=== PATIENT | male | born 1935 | race American Indian/Alaskan Native ===

== ENCOUNTER 2022-02-03 13:16 | Inpatient (IN) | payer MEDICARE ==
--- NOTE | 2022-02-03 16:22 | XRay Report ---
LEFT FEMUR 3 VIEWS INDICATION / CLINICAL INFORMATION: Left thigh pain. COMPARISON: None available. FINDINGS: BONES and JOINT(S): There is an acute minimally displaced left femoral neck fracture with an associat ed varus deformity. No dislocation. There is mild posterior arthritis of the left hip. No acute fract ure is noted elsewhere along the left femur. SOFT TISSUES: No acute findings. There is mild atherosclerosis along the knee/thigh. ADDITIONAL FINDINGS: None. IMPRESSION: 1. Acute left hip fracture as above. Signer Name: Nelson Linder MD Signed: 02/03/2022 4:17 PM Workstation Name: [facility]
[2022-02-03] MEDS ORDERED: ONDANSETRON 4 MG/2 ML INJ IV ONE (16:28)
[2022-02-03] MEDS ORDERED: MORPHINE 4 MG/1 ML INJ IV ONE (16:28)
--- NOTE | 2022-02-03 16:32 | XRay Report ---
Left hip-2 views INDICATION: thigh pain. COMPARISON: None available. IMPRESSION: Transverse bases cervical femoral neck fracture with mild impaction. Relatively anatomi c alignment is maintained. 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 No other fractur e identified. Signer Name: Twin Tomas MD Signed: 02/03/2022 4:28 PM Workstation Name: [id number]
--- NOTE | 2022-02-03 16:33 | Emergency Department Report ---
ED Extremity Problem HPI - General Chief complaint: Extremity Injury, Lower Stated complaint: LEG PAIN Time Seen by Provider: 02/03/22 16:05 Source: patient, EMS Mode of arrival: Stretcher Limitations: No Limitations - History of Present Illness Initial comments: 86 yo M who present with left thigh pain after a ladder felt on him while doing painting in his carrage. He says he was able to get up but the pain is unbearable. 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 No other modifying or associated factors reported. - Related Data Allergies Allergy/AdvReac Type Severity Reaction Status Date / Time No Known Allergies Allergy Verified 02/03/22 13:48 ED Review of Systems ROS: Stated complaint: LEG PAIN Other details as noted in HPI Comment: All other systems reviewed and negative Musculoskeletal: arthralgia, other (left thigh pain ) ED Physical Exam - General Limitations: No Limitations General appearance: alert, in distress (due to pain ) - Head Head exam: Present: normal inspection - Eye Eye exam: Present: normal appearance Pupils: Present: normal accommodation - ENT ENT exam: Present: normal exam, normal orophraynx, mucous membranes moist - Neck Neck exam: Present: normal inspection - Respiratory Respiratory exam: Present: normal lung sounds bilaterally. Absent: respiratory distress, accessory muscle use - Cardiovascular Cardiovascular Exam: Present: regular rate, normal rhythm, normal heart sounds - GI/Abdominal GI/Abdominal exam: Present: soft, normal bowel sounds. Absent: distended, tenderness - Extremities Exam Extremities exam: Present: tenderness (left mid thigh tenderness to palpation), normal capillary refill - Back Exam Back exam: Present: normal inspection - Neurological Exam Neurological exam: Present: alert, oriented X3 - Psychiatric Psychiatric exam: Present: normal affect, normal mood - Skin Skin exam: Present: warm, normal color ED Course Vital Signs 02/03/22 13:46 Pulse Rate 62 Blood Pressure 157/75 [Left] O2 Sat by Pulse 100 Oximetry - Reevaluation(s) Reevaluation #1: 02/03/22 16:34 here with with left thigh pain after a trauma-- will go ahead and order xray to rule out fracture or dislocation. Given morphine and zofran for symptomatic relieve. Reevaluation #2: 02/03/22 16:50 Hip and thigh xray noted with femoral neck fracture with minimal displacement and impaction-- I called and spoke with Dr Tavarez's answering service to have him call me back. In the meantime will go ahead and order routine pre-op labs including CBC, CMP and EKG. Reevaluation #3: 02/03/22 17:44 I called and Consult with Dr. Alonso who accepted patient for further evaluation and treatment. Pt will be admitted and Dr Hair is planning to take the patient to OR tomorrow possibly. 02/03/22 17:44 ED Medical Decision Making - Lab Data Result diagrams: 02/03/22 Unknown 02/03/22 Unknown Critical care attestation.: If time is entered above; I have spent that time in minutes in the direct care of this critically ill patient, excluding procedure time. ED Disposition Clinical Impression: Left thigh pain Fx humeral neck Qualifiers: Encounter type: initial encounter Fracture type: closed Laterality: left Qualified Code(s): S42.212A - Unspecified displaced fracture of surgical neck of left humerus, initial encounter for closed fracture Disposition: 09 ADMITTED INPATIENT Is pt being admited?: Yes Does the pt Need Aspirin: No Condition: Stable Referrals: PRIMARY CARE, [Primary Care Provider] - 3-5 Days Time of Disposition: 17:45
[2022-02-03 17:30] LABS: Basophils % (Auto) 0.1 % (0.0-1.8); Eosinophils # (Auto) 0.1 K/mm3 (0.0-0.4); Eosinophils % (Auto) 0.9 % (0.0-4.3); Hematocrit 39.3 % (35.5-45.6); Hemoglobin 13.5 gm/dl (11.8-15.2); Lymphocytes # (Auto) 0.5 K/mm3 (1.2-5.4); Lymphocytes % (Auto) 4.9 % (13.4-35.0); Mean Corpuscular HGB Conc 34 % (32-34); Mean Corpuscular Volume 100 fl (84-94); Monocytes # (Auto) 0.6 K/mm3 (0.0-0.8); Monocytes % (Auto) 6.2 % (0.0-7.3); Platelet Count 143 K/mm3 (140-440); Red Blood Count 3.94 M/mm3 (3.65-5.03); Red Cell Distribution Width 13.4 % (13.2-15.2)
[2022-02-03 17:44] LABS: INR 1.03 (0.87-1.13); Partial Thromboplastin Time 23.8 Sec. (24.2-36.6)
[2022-02-03 17:50] LABS: Alanine Aminotransferase 17 units/L (7-56); BUN/Creatinine Ratio 13; Blood Urea Nitrogen 12 mg/dL (9-20); Calcium 9.3 mg/dL (8.4-10.2); Hemolysis Index 6
[2022-02-03] MEDS ORDERED: ACETAMINOPHEN 325 MG TAB PO PRN (18:06)
[2022-02-03] MEDS ORDERED: ALBUTEROL 2.5 MG/3 ML NEBU IH PRN (18:06)
--- NOTE | 2022-02-03 18:06 | History and Physical Report ---
History of Present Illness Chief complaint: My leg hurts History of present illness: 86 YO Male with Vascular Dementia, Cerebral Atherosclerosis presents ED for evaluation. Patient reports "my leg hurts ". Patient states that he was in his usual state of health and was painting his garage today. Patient states that a ladder fell on him while painting which resulted in his fall to the ground. Patient states that he experienced immediate pain in his left leg and was unable to stand and bear weight on his left lower extremity. The patient was seen and evaluated in the emergency department. All lab and imaging studies reviewed. Patient underwent hip x-ray and was found to have left femoral neck fracture. O rthopedic surgery service consulted in ED. Patient is pending surgical intervention at this time. Patient denies fever, chills, chest pain, palpitation, productive cough, skin rash, syncope, recent contact, known exposure to COVID-19. no prior admission for review. No medication listed at time of admission for reconciliation. Advanced care planning conducted in ED. Past History Past Medical History: other (See HPI) Past Surgical History: No surgical history, Other ( reviewed) Social history: single. denies: smoking, alcohol abuse, prescription drug abuse Family history: no significant family history, other (Reviewed) Medications and Allergies Allergies Allergy/AdvReac Type Severity Reaction Status Date / Time No Known Allergies Allergy Verified 02/03/22 19:02 Review of Systems Constitutional: no weight loss, no weight gain, no fever, no chills Ears, nose, mouth and throat: no ear pain, no ear discharge, no tinnitis, no nasal congestion, no nasal discharge Cardiovascular: no chest pain, no palpitations, no edema, no syncope, no lightheadedness, no shortness of breath Respiratory: no cough, no cough with sputum, no hemoptysis Gastrointestinal: no abdominal pain, no hematemesis Genitourinary Male: no hematuria, no discharge, no urinary frequency, no nocturia, no incontinence, no genital pain Rectal: no pain, no incontinence, no bleeding Musculoskeletal: other (Left hip pain), no neck stiffness, no neck pain, no shooting arm pain, no arm numbness/tingling, no low back pain, no shooting leg pain Integumentary: no rash, no pruritis, no sores, no wounds Neurological: no head injury, no paralysis, no parathesias, no tingling, no tremors, no ataxia Psychiatric: no anxiety, no insomnia, no change in appetite, no suicidal ideation, no disorientation Endocrine: no cold intolerance, no polyphagia, no polydipsia, no polyuria, no nocturia, no flushing Hematologic/Lymphatic: no easy bruising, no easy bleeding Allergic/Immunologic: no urticaria, no allergic rhinitis, no wheezing Exam - Constitutional Vitals: Temp Pulse Resp BP Pulse Ox 62 157/75 100 02/03/22 13:46 02/03/22 13:46 02/03/22 13:46 General appearance: Present: mild distress - EENT Eyes: Present: PERRL ENT: hearing intact, clear oral mucosa - Neck Neck: Present: supple, normal ROM - Respiratory Respiratory effort: normal Respiratory: bilateral: CTA - Cardiovascular Heart Sounds: Present: S1 & S2. Absent: rub, click - Extremities Extremities: pulses symmetrical, No edema Extremity abnormal: erythema, tenderness, other (Left hip pain and tenderness) Peripheral Pulses: within normal limits - Abdominal General gastrointestinal: Present: soft, non-tender, non-distended, normal bowel sounds Male genitourinary: Present: normal - Integumentary Integumentary: Present: clear, warm, dry - Musculoskeletal Musculoskeletal: gait normal, strength equal bilaterally - Psychiatric Psychiatric: appropriate mood/affect, intact judgment & insight - Neurologic Neurologic: CNII-XII intact, moves all extremities Results - Labs CBC & Chem 7: 02/03/22 Unknown 02/03/22 Unknown Labs: Abnormal lab results 02/03/22 02/03/22 02/03/22 Range/Units Unknown Unknown Unknown MCV 100 H (84-94) fl MCH 34 H (28-32) pg Lymph % (Auto) 4.9 L (13.4-35.0) % Lymph # (Auto) 0.5 L (1.2-5.4) K/mm3 Seg Neutrophils % 87.9 H (40.0-70.0) % Seg Neutrophils # 8.3 H (1.8-7.7) K/mm3 APTT 23.8 L (24.2-36.6) Sec. Glucose 132 H (75-100) mg/dL Assessment and Plan - Patient Problems (1) Fx humeral neck Current Visit: Yes Status: Acute Qualifiers: Encounter type: initial encounter Fracture type: closed Laterality: left Qualified Code(s): S42.212A - Unspecified displaced fracture of surgical neck of left humerus, initial encounter for closed fracture Plan to address problem: X-ray pelvis, x-ray hip, orthopedic surgery service consulted, n.p.o., pain control, patient is pending surgical intervention. (2) Vascular dementia Current Visit: Yes Status: Acute Qualifiers: Dementia behavioral disturbance: without behavioral disturbance Qualified Code(s): F01.50 - Vascular dementia without behavioral disturbance Plan to address problem: Verbal prompting, verbal redirection, benzodiazepine therapy as clinically indicated. (3) Cerebral atherosclerosis Current Visit: Yes Status: Acute Plan to address problem: Risk factor reduction, antiplatelet therapy as clinically indicated. (4) DVT prophylaxis Current Visit: Yes Status: Acute Plan to address problem: SCD to bilateral lower extremities while in bed (5) Advance care planning Current Visit: Yes Status: Acute Plan to address problem: Disease education conducted, care plan discussed, diagnoses discussed, prognosis discussed, patient is full code. Patient knowledges understanding and agreement with care plan, +30 minutes.
[2022-02-03] MEDS: ONDANSETRON 4 MG/2 ML INJ IV PRN (20:30)
[2022-02-03] MEDS: HYDROmorphone 1 MG/1 ML INJ IV PRN (20:30)
[2022-02-04] MEDS: HYDROmorphone 1 MG/1 ML INJ IV PRN ×6 (02:51→23:06)
[2022-02-04 06:20] LABS: Basophils % (Auto) 0.2 % (0.0-1.8); Eosinophils # (Auto) 0.2 K/mm3 (0.0-0.4); Hematocrit 38.7 % (35.5-45.6); Hemoglobin 13.2 gm/dl (11.8-15.2); Lymphocytes # (Auto) 0.8 K/mm3 (1.2-5.4); Lymphocytes % (Auto) 10.5 % (13.4-35.0); Mean Corpuscular HGB Conc 34 % (32-34); Mean Corpuscular Volume 100 fl (84-94); Monocytes # (Auto) 0.7 K/mm3 (0.0-0.8); Platelet Count 136 K/mm3 (140-440); Red Blood Count 3.89 M/mm3 (3.65-5.03); Red Cell Distribution Width 13.2 % (13.2-15.2)
[2022-02-04 07:12] LABS: BUN/Creatinine Ratio 14; Blood Urea Nitrogen 14 mg/dL (9-20); Calcium 9.5 mg/dL (8.4-10.2); Hemolysis Index 6
--- NOTE | 2022-02-04 09:47 | Consultation ---
History of Present Illness - HPI Consult date: 02/04/22 History of present illness: ORTHOPAEDIC CONSULT Assessment: 1. Femoral neck fracture, basicervical, LEFT hip RECOMMENDATIONS : 1. Bipolar hip replacement, left hip ; 2. Case management for SNF placement for post op hip fracture recovery; 3. DVT prophylaxis consisting of the following: SCDs now and Eliquis or other DOAC drug for the next 5 weeks. Discussion: This is a 86-year-old gentleman who had the misfortune of being kno cked to the floor in his garage from a falling ladder yesterday. He had immediate pain and swelling and was unable to bear weight on the left leg; was therefore brought to the emergency room at [facility] where x-rays revealed a femoral neck fracture left hip. The [facility] was consulted. This is a healthy-appearing elderly male who is awake and alert and in no acute distress. He answers all questions well. He appears to be reasonably healthy and takes no cardiac medications or other drugs for chronic illnesses. Past History Past Medical History: other (See HPI) Past Surgical History: No surgical history, Other ( reviewed) Social history: single. denies: smoking, alcohol abuse, prescription drug abuse Family history: no significant family history, other (Reviewed) Medications and Allergies Allergies Allergy/AdvReac Type Severity Reaction Status Date / Time No Known Allergies Allergy Verified 02/03/22 19:02 Home Medications Medication Instructions Recorded Confirmed Last Taken Type No Known Home Medications [No 02/04/22 02/04/22 Unknown History Reported Home Medications] Active Meds: Active Medications Acetaminophen (Acetaminophen 325 Mg Tab) 650 mg PO Q4H PRN PRN Reason: Pain MILD(1-3)/Fever >100.5/SCOTT Albuterol (Albuterol 2.5 Mg/3 Ml Nebu) 2.5 mg IH Q4HRT PRN PRN Reason: Shortness Of Breath Hydromorphone HCl (Hydromorphone 1 Mg/1 Ml Inj) 0.5 mg IV Q3H PRN PRN Reason: Pain , Severe (7-10) Last Admin: 02/04/22 06:26 Dose: 0.5 mg Ondansetron HCl (Ondansetron 4 Mg/2 Ml Inj) 4 mg IV Q8H PRN PRN Reason: Nausea And Vomiting Last Admin: 02/03/22 20:30 Dose: 4 mg Oxycodone/Acetaminophen (Oxycodone /Acetaminophen 5-325mg Tab) 1 tab PO Q6H PRN PRN Reason: Pain, Moderate (4-6) Sodium Chloride (Sodium Chloride 0.9% 10 Ml Flush Syringe) 10 ml IV BID DIDIER Last Admin: 02/03/22 22:46 Dose: 10 ml Sodium Chloride (Sodium Chloride 0.9% 10 Ml Flush Syringe) 10 ml IV PRN PRN PRN Reason: LINE FLUSH
--- NOTE | 2022-02-04 12:15 | Anesthesia Day of Surgery ---
Anesthesia Day of Surgery - Day of Surgery Patient Examined: Yes Patient H&P Reviewed: Yes Patient is NPO: Yes
--- NOTE | 2022-02-04 12:18 | Anesthesia Consultation ---
Anesthesia Consult and Med Hx Date of service: 02/04/22 - Airway Anesthetic Teeth Evaluation: Partials (Upper), Edentulous (Lower) ROM Head & Neck: Adequate Mental/Hyoid Distance: Adequate Mallampati Class: Class II Intubation Access Assessment: Good - Pre-Operative Health Status ASA Pre-Surgery Classification: ASA2 Proposed Anesthetic Plan: General - Pulmonary Hx Smoking: No Hx Sleep Apnea: No - Central Nervous System Hx Neuromuscular Disorder: Yes (Tremors) - Gastrointestinal Hx Gastroesophageal Reflux Disease: No - Other Systems Hx Obesity: No
[2022-02-04] MEDS: LATANOPROST 0.005% OPHTH SOLN 2.5 ML OU SCH (19:43)
--- NOTE | 2022-02-04 20:31 | Progress Note ---
Assessment and Plan - Patient Problems (1) Fx humeral neck Current Visit: Yes Status: Acute Qualifiers: Encounter type: initial encounter Fracture type: closed Laterality: left Qualified Code(s): S42.212A - Unspecified displaced fracture of surgical neck of left humerus, initial encounter for closed fracture Plan to address problem: X-ray pelvis, x-ray hip, orthopedic surgery service consulted, n.p.o., pain control, patient is pending surgical intervention. (2) Vascular dementia Current Visit: Yes Status: Acute Qualifiers: Dementia behavioral disturbance: without behavioral disturbance Qualified Code(s): F01.50 - Vascular dementia without behavioral disturbance Plan to address problem: Verbal prompting, verbal redirection, benzodiazepine therapy as clinically indicated. (3) Cerebral atherosclerosis Current Visit: Yes Status: Acute Plan to address problem: Risk factor reduction, antiplatelet therapy as clinically indicated. (4) DVT prophylaxis Current Visit: Yes Status: Acute Plan to address problem: SCD to bilateral lower extremities while in bed (5) Advance care planning Current Visit: Yes Status: Acute Plan to address problem: Disease education conducted, care plan discussed, diagnoses discussed, prognosis discussed, patient is full code. Patient knowledges understanding and agreement with care plan, +30 minutes. History Interval history: 86 YO Male HD #2 with Left Hip Fracture. Pt resting comfortably in bed. Pt denies pain. No reported nursing events. Pt is pending surgical intervention. Hospitalist Physical - Constitutional Vitals: Temp Pulse Resp BP Pulse Ox 98.4 F 63 18 126/55 92 02/04/22 16:13 02/04/22 16:13 02/04/22 16:13 02/04/22 16:13 02/04/22 16:13 General appearance: Present: mild distress - EENT Eyes: Present: PERRL ENT: hearing intact - Neck Neck: Present: supple - Respiratory Respiratory effort: normal Respiratory: bilateral: CTA - Cardiovascular Rhythm: regular Heart Sounds: Present: S1 & S2 - Extremities Extremities: no ischemia Peripheral Pulses: within normal limits - Abdominal General gastrointestinal: soft, non-tender, non-distended - Integumentary Integumentary: Present: clear, dry - Psychiatric Psychiatric: cooperative - Neurologic Neurologic: CNII-XII intact Results - Labs CBC & Chem 7: 02/04/22 05:41 02/04/22 05:41 Labs: Laboratory Last Values WBC 7.7 K/mm3 (4.5-11.0) 02/04/22 05:41 RBC 3.89 M/mm3 (3.65-5.03) 02/04/22 05:41 Hgb 13.2 gm/dl (11.8-15.2) 02/04/22 05:41 Hct 38.7 % (35.5-45.6) 02/04/22 05:41 MCV 100 fl (84-94) H 02/04/22 05:41 MCH 34 pg (28-32) H 02/04/22 05:41 MCHC 34 % (32-34) 02/04/22 05:41 RDW 13.2 % (13.2-15.2) 02/04/22 05:41 Plt Count 136 K/mm3 (140-440) L 02/04/22 05:41 Lymph % (Auto) 10.5 % (13.4-35.0) L 02/04/22 05:41 Dickens % (Auto) 9.0 % (0.0-7.3) H 02/04/22 05:41 Eos % (Auto) 3.0 % (0.0-4.3) 02/04/22 05:41 Baso % (Auto) 0.2 % (0.0-1.8) 02/04/22 05:41 Lymph # (Auto) 0.8 K/mm3 (1.2-5.4) L 02/04/22 05:41 Dickens # (Auto) 0.7 K/mm3 (0.0-0.8) 02/04/22 05:41 Eos # (Auto) 0.2 K/mm3 (0.0-0.4) 02/04/22 05:41 Baso # (Auto) 0.0 K/mm3 (0.0-0.1) 02/04/22 05:41 Seg Neutrophils % 77.3 % (40.0-70.0) H 02/04/22 05:41 Seg Neutrophils # 6.0 K/mm3 (1.8-7.7) 02/04/22 05:41 PT 14.6 Sec. (12.2-14.9) 02/03/22 Unknown INR 1.03 (0.87-1.13) 02/03/22 Unknown APTT 23.8 Sec. (24.2-36.6) L 02/03/22 Unknown Sodium 143 mmol/L (137-145) 02/04/22 05:41 Potassium 4.1 mmol/L (3.6-5.0) 02/04/22 05:41 Chloride 106.8 mmol/L (98-107) 02/04/22 05:41 Carbon Dioxide 24 mmol/L (22-30) 02/04/22 05:41 Anion Gap 16 mmol/L 02/04/22 05:41 BUN 14 mg/dL (9-20) 02/04/22 05:41 Creatinine 1.0 mg/dL (0.8-1.3) 02/04/22 05:41 Estimated GFR > 60 ml/min 02/04/22 05:41 BUN/Creatinine Ratio 14 % 02/04/22 05:41 Glucose 116 mg/dL (75-100) H 02/04/22 05:41 Calcium 9.5 mg/dL (8.4-10.2) 02/04/22 05:41 Total Bilirubin 0.60 mg/dL (0.1-1.2) 02/03/22 Unknown AST 24 units/L (5-40) 02/03/22 Unknown ALT 17 units/L (7-56) 02/03/22 Unknown Alkaline Phosphatase 79 units/L (35-129) 02/03/22 Unknown Total Protein 7.0 g/dL (6.3-8.2) 02/03/22 Unknown Albumin 4.0 g/dL (3.9-5) 02/03/22 Unknown Albumin/Globulin Ratio 1.3 % 02/03/22 Unknown Active Medications - Current Medications Current Medications: Generic Name Dose Route Start Last Admin Trade Name Freq PRN Reason Stop Dose Admin Acetaminophen 650 mg 02/03/22 18:06 Acetaminophen 325 Mg Tab PO Q4H PRN Pain MILD(1-3)/Fever >100.5/SCOTT Albuterol 2.5 mg 02/03/22 18:06 Albuterol 2.5 Mg/3 Ml Nebu IH Q4HRT PRN Shortness Of Breath Aspirin 81 mg 02/06/22 10:00 Aspirin Ec 81 Mg Tab PO Rai DIDIER Hydromorphone HCl 0.5 mg 02/03/22 18:06 02/04/22 15:00 Hydromorphone 1 Mg/1 Ml Inj IV 0.5 mg Q3H PRN Administration Pain , Severe (7-10) Latanoprost 1 drops 02/04/22 18:00 Latanoprost 0.005% Ophth Soln 2.5 Ml OU QPM [facility] Multivitamins 1 each 02/05/22 10:00 Multivitamins ,Therapeutic Tab PO DAILY [facility] Ondansetron HCl 4 mg 02/03/22 18:06 02/03/22 20:30 Ondansetron 4 Mg/2 Ml Inj IV 4 mg Q8H PRN Administration Nausea And Vomiting Oxycodone/Acetaminophen 1 tab 02/03/22 18:06 Oxycodone /Acetaminophen 5-325mg Tab PO Q6H PRN Pain, Moderate (4-6) Sodium Chloride 10 ml 02/03/22 22:00 02/04/22 11:28 Sodium Chloride 0.9% 10 Ml Flush Syringe IV 10 ml BID DIDIER Administration Sodium Chloride 10 ml 02/03/22 18:06 Sodium Chloride 0.9% 10 Ml Flush Syringe IV PRN PRN LINE FLUSH
[2022-02-04] MEDS: oxyCODONE /ACETAMINOPHEN 5-325MG TAB PO PRN (22:56)
[2022-02-04] MEDS: ONDANSETRON 4 MG/2 ML INJ IV PRN (23:08)
[2022-02-05] MEDS: HYDROmorphone 1 MG/1 ML INJ IV PRN ×4 (05:28→21:50)
[2022-02-05] MEDS ORDERED: LIDOCAINE MPF (2%) 20 MG/1 ML VIAL 5 ML ONE (09:03)
[2022-02-05] MEDS ORDERED: fentaNYL 100 MCG/2 ML INJ ONE (09:03)
[2022-02-05] MEDS ORDERED: ONDANSETRON 4 MG/2 ML INJ ONE (09:03)
[2022-02-05] MEDS ORDERED: propofoL 200 MG/20 ML VIAL IV ONE (09:05)
[2022-02-05] MEDS: MULTIVITAMINS ,THERAPEUTIC TAB PO SCH (09:57)
[2022-02-05] MEDS ORDERED: NON-FORMULARY EACH (Multivitamin [Multivitamin] 1 EACH Tablet) PO SCH (10:00)
[2022-02-05] MEDS ORDERED: FLUTICASONE PROPIONATE NASAL SPRAY 16 GM NS PRN (11:57)
--- NOTE | 2022-02-05 12:38 | Anesthesia Day of Surgery ---
Anesthesia Day of Surgery - Day of Surgery Patient Examined: Yes Patient H&P Reviewed: Yes Patient is NPO: Yes Beta Blockers: No Cardiac Clearance: No Pulmonary Clearance: No
[2022-02-05] MEDS ORDERED: ceFAZolin 1 GM VIAL ONE ×2 (13:29)
[2022-02-05] MEDS ORDERED: HYDROmorphone 1 MG/1 ML INJ ONE (13:43)
[2022-02-05] MEDS ORDERED: NEOMY 40 MG/POLYMYXIN B 200,000 UNITS/ML (GU) AMPULE IR ONE ×2 (13:51→14:07)
[2022-02-05] MEDS ORDERED: SODIUM CHLORIDE 0.9% IRR 1,500 ML BOTTLE IR ONE (14:08)
[2022-02-05] MEDS ORDERED: ROCURONIUM 50 MG/5 ML INJ IV ONE (14:32)
[2022-02-05] MEDS ORDERED: NEOSTIGMINE 10MG/10 ML INJ MDV ONE (14:34)
[2022-02-05] MEDS ORDERED: GLYCOPYRROLATE 0.4 MG/2 ML INJ ONE (14:34)
--- NOTE | 2022-02-05 15:19 | Operative Report ---
Operative Report Operative Report: OP NOTE Preop diagnosis : Femoral neck fracture, left hip (basicervical ) Postop diagnosis: Same Procedure: Bipolar hip replacement, LEFT hip Surgeon: Carter Hair MD stylist assistant: Dr. Landa Anesthesia: General withj ETT Details of OPERATIVE TECHNIQUE : After being appropriately prepared and cleared for surgery the patient was brought to the operating room and the correct site was identified. General anesthesia was then administered. The patient was then placed in the decubitus position with the left hip up and all pressure points were well-padded. An axillary roll was placed under the appropriate side. The hip was then prepped and draped in the usual sterile fashion with Betadine and ChloraPrep solution as per total hip protocol. Space suits were worn by the surgical team. Antibiotic was administered IV prior to the start of the case in the form of 2 g Ancef. The hip was opened through a straight anterior lateral approach. Dissection was carried down through the fibrofatty layer; bleeders were clamped and cauterized with the Bovie. The tensor fascia was split the length of the incision and the Charnley retractor was carefully placed. The leg was then externally rotated and the gluteus medius and minimus were removed from the trochanter leaving a good cuff of tissue for repair. A capsulectomy was performed revealing fracture hematoma and fracture debris. The femoral head was then removed and sized on the back table. A neck cut was then made with an oscillating saw the leg was placed into the sterile bag. Attention was then directed toward the proximal femur. A box osteotome was utilized to create a lateral starting position. The distal femur was first reamed a small hand-held reamers. And then the proximal femur was prepared with broaches sequentially up to a size #8. A trial reduction was then carried out with the #[address]. The patient required a +0 neck length and the bipolar 53 mm outside diameter head was then assembled and the hip was reduced. Excellent stability was noted with the trial reduction. The patient was stable in full extension and external rotation as well as 90 degrees of hip flexion and internal rotation. Leg lengths were normalized. Shuck test was negative. Proximal femur was then irrigated copiously with antibiotic solution. The actual size #8 press-fit stem by [place] was then impacted into place. Once again excellent rotational stability was achieved. +0 neck length with bipolar head ( 53mm outside diameter/26mm inside diameter) was attached and the hip was reduced once again. Excellent stability was confirmed in all planes. The wound was then irrigated thoroughly with antibiotic solution. The abductors were repaired with #1 and 0 Vicryl sutures. The repair was oversewn with 0 Vicryl. The tensor fascia alfred was reapproximated with a running locking suture of 0 Vicryl suture. The subcutaneous layer was closed with both 0 and 2-0 Vicryl. The skin was reapproximated with jasen. Xeroform dressing and an occlusive compressive dressing were applied. Patient was then awakened and taken to recovery room in excellent condition. Estimated blood loss: 450 cc Replacement: See anesthesia record/less than 1000 cc crystalloid Drains : None Complications: None
--- NOTE | 2022-02-05 15:51 | Post Anesthesia Evaluation ---
- Post Anesthesia Evaluation Patient Participated: Yes Airway Patent: Yes Stable Respiratory Function: Yes Nausea/Vomiting: No Temp > 96.8F: Yes Pain Manageable: Yes Adequeate Hydration: Yes Anesthesia Complications: No Block Receding Appropriately: Yes Patient on Ventilator: Yes
[2022-02-05] MEDS: LATANOPROST 0.005% OPHTH SOLN 2.5 ML OU SCH (20:40)
--- NOTE | 2022-02-05 21:11 | Progress Note ---
Assessment and Plan - Patient Problems (1) Fx humeral neck Current Visit: Yes Status: Acute Qualifiers: Encounter type: initial encounter Fracture type: closed Laterality: left Qualified Code(s): S42.212A - Unspecified displaced fracture of surgical neck of left humerus, initial encounter for closed fracture Plan to address problem: orthopedic surgery service consulted, pain control, patient is s/p surgical intervention. (2) Vascular dementia Current Visit: Yes Status: Acute Qualifiers: Dementia behavioral disturbance: without behavioral disturbance Qualified Code(s): F01.50 - Vascular dementia without behavioral disturbance Plan to address problem: Verbal prompting, verbal redirection, benzodiazepine therapy as clinically indicated. (3) Cerebral atherosclerosis Current Visit: Yes Status: Acute Plan to address problem: Risk factor reduction, antiplatelet therapy as clinically indicated. (4) DVT prophylaxis Current Visit: Yes Status: Acute Plan to address problem: SCD to bilateral lower extremities while in bed (5) Advance care planning Current Visit: Yes Status: Acute Plan to address problem: Disease education conducted, care plan discussed, diagnoses discussed, prognosis discussed, patient is full code. Patient knowledges understanding and agreement with care plan, +30 minutes. History Interval history: 86 YO Male HD #3 with Left Hip Fracture. Pt resting comfortably in bed. Pt denies pain. No reported nursing events. Pt is pending surgical intervention. Hospitalist Physical - Constitutional Vitals: Temp Pulse Resp BP Pulse Ox 99.6 F 80 20 148/68 97 02/05/22 16:00 02/05/22 16:00 02/05/22 18:54 02/05/22 16:00 02/05/22 16:00 General appearance: Present: mild distress - EENT Eyes: Present: PERRL, EOM intact ENT: hearing intact - Neck Neck: Present: supple - Respiratory Respiratory effort: normal Respiratory: bilateral: CTA - Cardiovascular Rhythm: regular Heart Sounds: Present: S1 & S2 - Extremities Extremities: no ischemia Peripheral Pulses: within normal limits - Abdominal General gastrointestinal: soft, non-tender, non-distended - Integumentary Integumentary: Present: clear, dry - Psychiatric Psychiatric: appropriate mood/affect, cooperative - Neurologic Neurologic: CNII-XII intact Results - Labs CBC & Chem 7: 02/04/22 05:41 02/04/22 05:41 Labs: Laboratory Last Values WBC 7.7 K/mm3 (4.5-11.0) 02/04/22 05:41 RBC 3.89 M/mm3 (3.65-5.03) 02/04/22 05:41 Hgb 13.2 gm/dl (11.8-15.2) 02/04/22 05:41 Hct 38.7 % (35.5-45.6) 02/04/22 05:41 MCV 100 fl (84-94) H 02/04/22 05:41 MCH 34 pg (28-32) H 02/04/22 05:41 MCHC 34 % (32-34) 02/04/22 05:41 RDW 13.2 % (13.2-15.2) 02/04/22 05:41 Plt Count 136 K/mm3 (140-440) L 02/04/22 05:41 Lymph % (Auto) 10.5 % (13.4-35.0) L 02/04/22 05:41 [place] % (Auto) 9.0 % (0.0-7.3) H 02/04/22 05:41 Eos % (Auto) 3.0 % (0.0-4.3) 02/04/22 05:41 Baso % (Auto) 0.2 % (0.0-1.8) 02/04/22 05:41 Lymph # (Auto) 0.8 K/mm3 (1.2-5.4) L 02/04/22 05:41 [place] # (Auto) 0.7 K/mm3 (0.0-0.8) 02/04/22 05:41 Eos # (Auto) 0.2 K/mm3 (0.0-0.4) 02/04/22 05:41 Baso # (Auto) 0.0 K/mm3 (0.0-0.1) 02/04/22 05:41 Seg Neutrophils % 77.3 % (40.0-70.0) H 02/04/22 05:41 Seg Neutrophils # 6.0 K/mm3 (1.8-7.7) 02/04/22 05:41 PT 14.6 Sec. (12.2-14.9) 02/03/22 Unknown INR 1.03 (0.87-1.13) 02/03/22 Unknown APTT 23.8 Sec. (24.2-36.6) L 02/03/22 Unknown Sodium 143 mmol/L (137-145) 02/04/22 05:41 Potassium 4.1 mmol/L (3.6-5.0) 02/04/22 05:41 Chloride 106.8 mmol/L (98-107) 02/04/22 05:41 Carbon Dioxide 24 mmol/L (22-30) 02/04/22 05:41 Anion Gap 16 mmol/L 02/04/22 05:41 BUN 14 mg/dL (9-20) 02/04/22 05:41 Creatinine 1.0 mg/dL (0.8-1.3) 02/04/22 05:41 Estimated GFR > 60 ml/min 02/04/22 05:41 BUN/Creatinine Ratio 14 % 02/04/22 05:41 Glucose 116 mg/dL (75-100) H 02/04/22 05:41 Calcium 9.5 mg/dL (8.4-10.2) 02/04/22 05:41 Total Bilirubin 0.60 mg/dL (0.1-1.2) 02/03/22 Unknown AST 24 units/L (5-40) 02/03/22 Unknown ALT 17 units/L (7-56) 02/03/22 Unknown Alkaline Phosphatase 79 units/L (35-129) 02/03/22 Unknown Total Protein 7.0 g/dL (6.3-8.2) 02/03/22 Unknown Albumin 4.0 g/dL (3.9-5) 02/03/22 Unknown Albumin/Globulin Ratio 1.3 % 02/03/22 Unknown Active Medications - Current Medications Current Medications: Generic Name Dose Route Start Last Admin Trade Name Freq PRN Reason Stop Dose Admin Acetaminophen 650 mg 02/03/22 18:06 Acetaminophen 325 Mg Tab PO Q4H PRN Pain MILD(1-3)/Fever >100.5/SCOTT Albuterol 2.5 mg 02/03/22 18:06 Albuterol 2.5 Mg/3 Ml Nebu IH Q4HRT PRN Shortness Of Breath Aspirin 81 mg 02/06/22 10:00 Aspirin Ec 81 Mg Tab PO Rai DIDIER Fluticasone Propionate 100 mcg 02/05/22 11:57 Fluticasone Propionate Nasal [place] 16 Gm NS QDAY PRN sinusitis Hydromorphone HCl 0.5 mg 02/03/22 18:06 02/05/22 18:54 Hydromorphone 1 Mg/1 Ml Inj IV 0.5 mg Q3H PRN Administration Pain , Severe (7-10) Latanoprost 1 drops 02/04/22 18:00 02/05/22 20:40 Latanoprost 0.005% Ophth Soln 2.5 Ml OU Not Given QPM [facility] Multivitamins 1 each 02/05/22 10:00 02/05/22 09:57 Multivitamins ,Therapeutic Tab PO Not Given DAILY [facility] Ondansetron HCl 4 mg 02/03/22 18:06 02/04/22 23:08 Ondansetron 4 Mg/2 Ml Inj IV 4 mg Q8H PRN Administration Nausea And Vomiting Oxycodone/Acetaminophen 1 tab 02/03/22 18:06 02/04/22 22:56 Oxycodone /Acetaminophen 5-325mg Tab PO 1 tab Q6H PRN Administration Pain, Moderate (4-6) Sodium Chloride 10 ml 02/03/22 22:00 02/05/22 09:57 Sodium Chloride 0.9% 10 Ml Flush Syringe IV 10 ml BID DIDIER Administration Sodium Chloride 10 ml 02/03/22 18:06 Sodium Chloride 0.9% 10 Ml Flush Syringe IV PRN PRN LINE FLUSH
[2022-02-06] MEDS: oxyCODONE /ACETAMINOPHEN 5-325MG TAB PO PRN ×2 (02:48→21:44)
[2022-02-06] MEDS: HYDROmorphone 1 MG/1 ML INJ IV PRN ×4 (03:25→19:30)
[2022-02-06] MEDS ORDERED: PHENOL 1.4% 177 ML BOTTLE MM PRN (04:59)
[2022-02-06] MEDS: MULTIVITAMINS ,THERAPEUTIC TAB PO SCH (09:29)
[2022-02-06] MEDS ORDERED: ASPIRIN EC 81 MG TAB PO SCH (10:00)
[2022-02-06] MEDS: CETIRIZINE 10 MG TAB PO SCH (14:41)
[2022-02-06] MEDS: LATANOPROST 0.005% OPHTH SOLN 2.5 ML OU SCH (19:41)
--- NOTE | 2022-02-06 19:41 | XRay Report ---
CHEST 1 VIEW INDICATION / CLINICAL INFORMATION: difficulty breathing. COMPARISON: None available. FINDINGS: SUPPORT DEVICES: None. HEART / MEDIASTINUM: No significant abnormality. LUNGS / PLEURA: No significant pulmonary or pleural abnormality. No pneumothorax. ADDITIONAL FINDINGS: No significant additional findings. IMPRESSION: 1. No acute findings. Signer Name: Vanna Jasmine MD Signed: 02/06/2022 7:36 PM Workstation Name: [id number]
[2022-02-06 20:00] LABS: ABG Base Excess 2.4 mmol/L (-2.0-3.0); ABG HCO3 25.4 mmol/L (20.0-26.0); ABG Methemoglobin 0.4 % (0.0-1.5); ABG Oxygen Saturation 96.9 % (95.0-99.0); ABG PCO2 33.6 mm Hg; ABG PH 7.496 pH Units (7.350-7.450); ABG PO2 69.3 mm Hg (80.0-90.0)
--- NOTE | 2022-02-06 20:53 | Cat Scan Report ---
CTA CHEST WITH IV CONTRAST INDICATION / CLINICAL INFORMATION: dypsnea. Recent left hip fracture TECHNIQUE: Axial CT images were obtained through the chest after injection of 100 mL Omnipaque 350 IV contrast. 3 plane MIP and/or 3D reconstructions were produced. All CT scans at this location are performed usin g CT dose reduction for ALARA by means of automated exposure control. COMPARISON: Chest radiograph earlier today FINDINGS: PULMONARY ARTERIES: No pulmonary emboli. THORACIC AORTA: No significant abnormality. HEART: No significant abnormality. CORONARY ARTERIES: Coronary artery calcification is present. PLEURA: No pleural effusion. No pneumothorax. LYMPH NODES: No significant adenopathy. LUNGS: There is some minimal nodularity within the anterior aspect of the right middle lobe, more fredrick n likely infectious in etiology. Scarring is also another possibility. No large area of consolidation .Mild biapical pleural-parenchymal scarring is noted. Minimal emphysematous changes present throughou t the lungs. ADDITIONAL FINDINGS: None. UPPER ABDOMEN: No acute findings. SKELETAL STRUCTURES: Prominent spondylitic change noted throughout the thoracic spine. No acute osseo us abnormality noted. IMPRESSION: 1. No CT evidence for pulmonary embolism. 2. Mild nodularity within the anterior aspect of the right middle lobe probably infectious in etiolog y. Signer Name: Vanna Jasmine MD Signed: 02/06/2022 8:49 PM Workstation Name: [id number]
--- NOTE | 2022-02-06 21:03 | Progress Note ---
Assessment and Plan - Patient Problems (1) Fx humeral neck Current Visit: Yes Status: Acute Qualifiers: Encounter type: initial encounter Fracture type: closed Laterality: left Qualified Code(s): S42.212A - Unspecified displaced fracture of surgical neck of left humerus, initial encounter for closed fracture Plan to address problem: orthopedic surgery service consulted, pain control, patient is s/p surgical intervention. (2) Vascular dementia Current Visit: Yes Status: Acute Qualifiers: Dementia behavioral disturbance: without behavioral disturbance Qualified Code(s): F01.50 - Vascular dementia without behavioral disturbance Plan to address problem: Verbal prompting, verbal redirection, benzodiazepine therapy as clinically indicated. (3) Cerebral atherosclerosis Current Visit: Yes Status: Acute Plan to address problem: Risk factor reduction, antiplatelet therapy as clinically indicated. (4) DVT prophylaxis Current Visit: Yes Status: Acute Plan to address problem: SCD to bilateral lower extremities while in bed (5) Advance care planning Current Visit: Yes Status: Acute Plan to address problem: Disease education conducted, care plan discussed, diagnoses discussed, prognosis discussed, patient is full code. Patient knowledges understanding and agreement with care plan, +30 minutes. History Interval history: 86 YO Male HD #4 with Left Hip Fracture. Pt resting comfortably in bed. Pt denies pain. No reported nursing events. Pt is s/p surgical intervention. Hospitalist Physical - Constitutional Vitals: Temp Pulse Resp BP Pulse Ox 99.6 F 97 H 20 119/68 94 02/06/22 16:59 02/06/22 16:59 02/06/22 16:59 02/06/22 16:59 02/06/22 16:59 General appearance: Present: mild distress - EENT Eyes: Present: PERRL, EOM intact ENT: hearing intact - Neck Neck: Present: supple - Respiratory Respiratory effort: normal Respiratory: bilateral: CTA - Cardiovascular Rhythm: regular Heart Sounds: Present: S1 & S2 - Extremities Extremities: no ischemia Peripheral Pulses: within normal limits - Abdominal General gastrointestinal: soft, non-tender, non-distended - Integumentary Integumentary: Present: clear, dry - Psychiatric Psychiatric: appropriate mood/affect, cooperative - Neurologic Neurologic: CNII-XII intact Results - Labs CBC & Chem 7: 02/04/22 05:41 02/04/22 05:41 Labs: Laboratory Last Values WBC 7.7 K/mm3 (4.5-11.0) 02/04/22 05:41 RBC 3.89 M/mm3 (3.65-5.03) 02/04/22 05:41 Hgb 13.2 gm/dl (11.8-15.2) 02/04/22 05:41 Hct 38.7 % (35.5-45.6) 02/04/22 05:41 MCV 100 fl (84-94) H 02/04/22 05:41 MCH 34 pg (28-32) H 02/04/22 05:41 MCHC 34 % (32-34) 02/04/22 05:41 RDW 13.2 % (13.2-15.2) 02/04/22 05:41 Plt Count 136 K/mm3 (140-440) L 02/04/22 05:41 Lymph % (Auto) 10.5 % (13.4-35.0) L 02/04/22 05:41 [place] % (Auto) 9.0 % (0.0-7.3) H 02/04/22 05:41 Eos % (Auto) 3.0 % (0.0-4.3) 02/04/22 05:41 Baso % (Auto) 0.2 % (0.0-1.8) 02/04/22 05:41 Lymph # (Auto) 0.8 K/mm3 (1.2-5.4) L 02/04/22 05:41 [place] # (Auto) 0.7 K/mm3 (0.0-0.8) 02/04/22 05:41 Eos # (Auto) 0.2 K/mm3 (0.0-0.4) 02/04/22 05:41 Baso # (Auto) 0.0 K/mm3 (0.0-0.1) 02/04/22 05:41 Seg Neutrophils % 77.3 % (40.0-70.0) H 02/04/22 05:41 Seg Neutrophils # 6.0 K/mm3 (1.8-7.7) 02/04/22 05:41 PT 14.6 Sec. (12.2-14.9) 02/03/22 Unknown INR 1.03 (0.87-1.13) 02/03/22 Unknown APTT 23.8 Sec. (24.2-36.6) L 02/03/22 Unknown ABG pH 7.496 pH Units (7.350-7.450) H 02/06/22 19:36 ABG pCO2 33.6 mm Hg 02/06/22 19:36 ABG pO2 69.3 mm Hg (80.0-90.0) L 02/06/22 19:36 ABG HCO3 25.4 mmol/L (20.0-26.0) 02/06/22 19:36 ABG O2 Saturation 96.9 % (95.0-99.0) 02/06/22 19:36 ABG O2 Content 15.1 (0.0-44) 02/06/22 19:36 ABG Base Excess 2.4 mmol/L (-2.0-3.0) 02/06/22 19:36 ABG Hemoglobin 11.3 gm/dl (14.0-18.0) L 02/06/22 19:36 ABG Carboxyhemoglobin 1.7 % (0.0-5.0) 02/06/22 19:36 ABG Methemoglobin 0.4 % (0.0-1.5) 02/06/22 19:36 Oxyhemoglobin 94.8 % (95.0-99.0) L 02/06/22 19:36 FiO2 21 % 02/06/22 19:36 Sodium 143 mmol/L (137-145) 02/04/22 05:41 Potassium 4.1 mmol/L (3.6-5.0) 02/04/22 05:41 Chloride 106.8 mmol/L (98-107) 02/04/22 05:41 Carbon Dioxide 24 mmol/L (22-30) 02/04/22 05:41 Anion Gap 16 mmol/L 02/04/22 05:41 BUN 14 mg/dL (9-20) 02/04/22 05:41 Creatinine 1.0 mg/dL (0.8-1.3) 02/04/22 05:41 Estimated GFR > 60 ml/min 02/04/22 05:41 BUN/Creatinine Ratio 14 % 02/04/22 05:41 Glucose 116 mg/dL (75-100) H 02/04/22 05:41 Calcium 9.5 mg/dL (8.4-10.2) 02/04/22 05:41 Total Bilirubin 0.60 mg/dL (0.1-1.2) 02/03/22 Unknown AST 24 units/L (5-40) 02/03/22 Unknown ALT 17 units/L (7-56) 02/03/22 Unknown Alkaline Phosphatase 79 units/L (35-129) 02/03/22 Unknown Total Protein 7.0 g/dL (6.3-8.2) 02/03/22 Unknown Albumin 4.0 g/dL (3.9-5) 02/03/22 Unknown Albumin/Globulin Ratio 1.3 % 02/03/22 Unknown Abdalla/IV: Voiding Method Urinal Active Medications - Current Medications Current Medications: Generic Name Dose Route Start Last Admin Trade Name Freq PRN Reason Stop Dose Admin Acetaminophen 650 mg 02/03/22 18:06 Acetaminophen 325 Mg Tab PO Q4H PRN Pain MILD(1-3)/Fever >100.5/SCOTT Albuterol 2.5 mg 02/03/22 18:06 Albuterol 2.5 Mg/3 Ml Nebu IH Q4HRT PRN Shortness Of Breath Aspirin 81 mg 02/06/22 10:00 02/06/22 09:29 Aspirin Ec 81 Mg Tab PO 81 mg Rai DIDIER Administration Cetirizine HCl 10 mg 02/06/22 13:09 02/06/22 14:41 Cetirizine 10 Mg Tab PO 10 mg QDAY DIDIER Administration Fluticasone Propionate 100 mcg 02/05/22 11:57 Fluticasone Propionate Nasal [place] 16 Gm NS QDAY PRN sinusitis Hydromorphone HCl 0.5 mg 02/03/22 18:06 02/06/22 19:30 Hydromorphone 1 Mg/1 Ml Inj IV 0.5 mg Q3H PRN Administration Pain , Severe (7-10) Latanoprost 1 drops 02/04/22 18:00 02/06/22 19:41 Latanoprost 0.005% Ophth Soln 2.5 Ml OU Not Given QPM [facility] Multivitamins 1 each 02/05/22 10:00 02/06/22 09:29 Multivitamins ,Therapeutic Tab PO 1 each DAILY DIDIER Administration Ondansetron HCl 4 mg 02/03/22 18:06 02/04/22 23:08 Ondansetron 4 Mg/2 Ml Inj IV 4 mg Q8H PRN Administration Nausea And Vomiting Oxycodone/Acetaminophen 1 tab 02/03/22 18:06 02/06/22 02:48 Oxycodone /Acetaminophen 5-325mg Tab PO 1 tab Q6H PRN Administration Pain, Moderate (4-6) Phenol 1 spray 02/06/22 04:59 02/06/22 05:22 Phenol 1.4% 177 Ml Bottle MM 1 spray PRN PRN Administration Sore Throat Sodium Chloride 10 ml 02/03/22 22:00 02/06/22 09:30 Sodium Chloride 0.9% 10 Ml Flush Syringe IV 10 ml BID DIDIER Administration Sodium Chloride 10 ml 02/03/22 18:06 Sodium Chloride 0.9% 10 Ml Flush Syringe IV PRN PRN LINE FLUSH
[2022-02-06] MEDS: D5W/0.9% NACL 1,000 ML IV SCH (22:14)
[2022-02-07] MEDS: HYDROmorphone 1 MG/1 ML INJ IV PRN ×2 (02:49→17:28)
[2022-02-07] MEDS: CETIRIZINE 10 MG TAB PO SCH (10:49)
[2022-02-07] MEDS: MULTIVITAMINS ,THERAPEUTIC TAB PO SCH (10:49)
[2022-02-07] MEDS: D5W/0.9% NACL 1,000 ML IV SCH (10:49)
--- NOTE | 2022-02-07 12:50 | Discharge Summary ---
Providers - Providers Date of Admission: 02/03/22 18:06 Attending physician: NASH CRANE 02/03/22 18:09 Consult to Physician [CONS] Stat Comment: Consulting Provider: JUAN MURRAY Physician Instructions: Reason For Exam: left femoral neck fracture 02/04/22 09:32 Consult to Case Management [CONS] Routine Services Needed at Discharge: Other Notified:: cm Comment:: SNF placement for 4-6 weeks following LEFT hip surgery 02/04/22 09:46 Physical Therapy Evaluation and Treat [CONS] Stat Comment: Eval and Treat Reason For Exam: Physical Therapy 02/05/22 15:24 Consult to Case Management [CONS] Routine Services Needed at Discharge: Home Health Services Physical Therapy Other Notified:: cm 02/05/22 15:40 Physical Therapy Evaluation and Treat [CONS] Routine Comment: Reason For Exam: post-op Bipolar hip replacement 02/06/22 13:10 Speech Therapy Evaluation and Treat [CONS] Routine Reason For Exam: dysphagia Primary care physician: [employer] MA[employer] Hospitalization Condition: Stable Disposition: 30 STILL A PATIENT - Discharge Diagnoses (1) Fx humeral neck Status: Acute Qualifiers: Encounter type: initial encounter Fracture type: closed Laterality: left Qualified Code(s): S42.212A - Unspecified displaced fracture of surgical neck of left humerus, initial encounter for closed fracture (2) Vascular dementia Status: Acute Qualifiers: Dementia behavioral disturbance: without behavioral disturbance Qualified Code(s): F01.50 - Vascular dementia without behavioral disturbance (3) Cerebral atherosclerosis Status: Acute (4) DVT prophylaxis Status: Acute (5) Advance care planning Status: Acute Exam - Constitutional Vitals: Temp Pulse Resp BP Pulse Ox 98.6 F 90 20 119/44 96 02/07/22 10:25 02/07/22 10:25 02/07/22 10:25 02/07/22 10:25 02/07/22 10:25 Plan Follow up with: PRIMARY CARE, [Primary Care Provider] - 3-5 Days Prescriptions: levoFLOXacin [Levaquin TAB] 500 mg PO QDAY #5 tablet
[2022-02-07] MEDS: oxyCODONE /ACETAMINOPHEN 5-325MG TAB PO PRN (12:55)
--- NOTE | 2022-02-07 13:59 | Electrocardiograph Report ---
[facility] Test Date: 2022-02-04 Test Time: 11:04:43 Pat Name: LEIGHANN BAKER Department: Room: A372 Gender: M [employer] Driver: YARIEL : 1935 Requested By: MERCY RAZA Order Number: [id number] Reading MD: Marci Munroe Measurements Intervals [place] Rate: 56 P: 80 TN: 194 QRS: 54 QRSD: 96 T: 96 QT: 420 QTc: 405 Interpretive Statements Sinus rhythm Nonspecific T abnormalities, lateral leads No previous ECG available for comparison Electronically Signed On 02-07-2022 13:59:35 EDT by Marci Munroe
[2022-02-07] MEDS: LATANOPROST 0.005% OPHTH SOLN 2.5 ML OU SCH (17:46)
[2022-02-07] MEDS ORDERED: ALPRAZolam 0.25 MG TAB PO ONE (21:43)
[2022-02-08] MEDS: oxyCODONE /ACETAMINOPHEN 5-325MG TAB PO PRN ×2 (01:16→10:07)
[2022-02-08] MEDS: CETIRIZINE 10 MG TAB PO SCH (10:07)
[2022-02-08] MEDS: MULTIVITAMINS ,THERAPEUTIC TAB PO SCH (10:07)
[2022-02-08] MEDS: HYDROmorphone 1 MG/1 ML INJ IV PRN (13:04)
[2022-02-08 16:30] VITALS: BP 105/51
== END 2022-02-08 16:45 | DRG 522 ==
LOC: ED 13:16 → 3A 18:06
PROVIDERS: ADMIT Internal Medicine; ATTEND Internal Medicine
PROC: 0SRS0JA Replacement of Left Hip Joint, Femoral Surface with Synthetic Substitute, Uncemented, Open Approach (ICD-10-PCS; principal; 2022-02-05)
DX: S72.092A Other fracture of head and neck of left femur, initial encounter for closed fracture (principal); F01.50 Vascular dementia, unspecified severity, without behavioral disturbance, psychotic disturbance, mood disturbance, and anxiety; I67.2 Cerebral atherosclerosis; Z20.822 Contact with and (suspected) exposure to COVID-19; W11.XXXA Fall on and from ladder, initial encounter; Y93.89 Activity, other specified; Y92.89 Other specified places as the place of occurrence of the external cause; Y99.8 Other external cause status
CPT/HCPCS: 36415; 36600; 71045; 71275; 80048; 80053; 82803; 85025; 85610; 85730; 88304; 88311; 93005; G0378; J1815; J3490; J7120; C1776; J0690; J1170; J1956; J2270; J2405; J2704; J2710; J3010; J7042; Q9967; U0003

== ENCOUNTER 2022-02-25 08:23 | Outpatient (CLI) | payer MEDICARE ==
--- NOTE | 2022-02-25 09:33 | XRay Report ---
XR pelvis 1-2V INDICATION: PAIN IN LEFT HIP M25.552. COMPARISON: 02/03/2022 FINDINGS: There has been left hip arthroplasty without periprosthetic fracture or loosening. 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 There is no acute fracture or subluxation. Signer Name: Dustin Mota MD Signed: 02/25/2022 9:28 AM Workstation Name: [email or web address]
== END 2022-02-25 08:24 | disposition home or self-care (01) ==
LOC: XRAY 08:23
PROVIDERS: ATTEND Orthopaedic Surgery
DX: M16.11 Unilateral primary osteoarthritis, right hip (principal); Z96.642 Presence of left artificial hip joint
CPT/HCPCS: 72170